=== PATIENT | male | born 1985 | race Caucasian/White ===

== ENCOUNTER 2017-05-29 11:51 | Emergency (ER) | payer OTHER ==
[~2017-05-29] VITALS: Ht 175.3 cm; Wt 60.6 kg
[~2017-05-29 11:51] MED LIST: IBUP-103 PO
[2017-05-29 11:54] VITALS: TEMP 36.6; Ht 175.3 cm; Wt 60.6 kg
[2017-05-29] MEDS ORDERED: HYDROCODONE/ACETAMOPHEN 5/325MG TAB PO STA (12:20)
--- NOTE | 2017-05-29 12:49 | DIAGNOSTIC IMAGING REPORT ---
LEFT KNEE 2 VIEWS HISTORY: left knee pain COMPARISON: None. FINDINGS: There is no fracture or dislocation. Soft tissues are unremarkable. No significant knee effusion. IMPRESSION: No fracture or dislocation within the left knee. Electronically signed by: Domenico Terrell M.D. 05/29/2017 12:47 PM Dictated Date/Time: 05/29/2017 12:46 PM
--- NOTE | 2017-05-29 12:54 | EMERGENCY ROOM VISIT NOTE ---
ED Visit Note First contact with patient: 12:00 CHIEF COMPLAINT: Left knee pain/injury HISTORY OF PRESENT ILLNESS: This 31-year-old male presents the ER with chief complaint of left knee pain. The patient states last evening he was moving a laundry basket and twisted his left knee and felt a "pop" in his left knee. He did not fall to the ground. The patient states that at 1:00 when he got up in the morning he could not stand on his leg due to the pain in his knee. He took 800 mg of ibuprofen this morning before he went to work. While he was at work she states it became more painful and therefore he came to the emergency room. The patient denies any prior injury to his knee. The patient denies any locking or giving out of the knee. REVIEW OF SYSTEMS: 6 system review was performed and was negative unless stated otherwise in history of present illness. PMH: The patient is healthy; testicular cancer SOCIAL HISTORY: Patient admits to tobacco use but denies any alcohol use. PHYSICAL EXAM: Vital Signs: Were reviewed GENERAL: 31-year-old male appears in no acute distress. Reviewed Nurse's notes. MENTAL STATUS: Alert, oriented, and cooperative. LEFT KNEE: No gross bony deformity noted. No erythema or edema noted. The patient is tender to palpation over the medial aspect. There is no joint effusion. Full range of motion with pain elicited with complete flexion .There is no ligamentous instability. The skin is normal and intact. EMERGENCY DEPARTMENT COURSE: The patient was evaluated. The patient was given [place] 5/325 mg one tablet by mouth for pain. X-ray of the left knee was ordered and interpreted by the radiologist and myself. DIAGNOSTICS:LEFT KNEE 2 VIEWS HISTORY: left knee pain COMPARISON: None. FINDINGS: There is no fracture or dislocation. Soft tissues are unremarkable. No significant knee effusion. IMPRESSION: No fracture or dislocation within the left knee. Electronically signed by: Domenico Terrell M.D. 05/29/2017 12:47 PM The patient was informed of the findings. The patient was placed in a knee immobilizer. The patient was discharged home in stable condition. DIAGNOSIS: Left Sprained Knee DISCHARGE INSTRUCTIONS: Knee immobilizer for 3 - 5 days until the pain subsides , ibuprofen, 600 mg every 6 hours if needed for pain. Ice to and elevation to the knee frequently for the next 24 hours. Stay off the leg as much as possible and see your physician or orthopedist in 4 or 5 days if you are not improving. Problem List Medical Problems: (1) Back pain Status: Resolved (2) Foreign body of eyelid, left Status: Resolved (3) Shoulder injury Status: Resolved (4) Sinusitis Status: Resolved (5) Testicular cancer Status: Resolved Surgical Problems: (1) H/O shoulder surgery Status: Resolved (2) S/P radical unilateral orchiectomy Status: Resolved Current/Historical Medications Scheduled PRN Ibuprofen Tab (Advil), 400 MG PO Q4H PRN for Pain Allergies Coded Allergies: Codeine (Unverified Allergy, Severe, VOMITTING, 05/29/17) Penicillins (Verified Allergy, Severe, HIVES AND THROAT EDEMA, 05/29/17) Tramadol (Verified Allergy, Unknown, hives, 05/29/17) Ketorolac Tromethamine (Unverified Adverse Reaction, Unknown, VOMITING, 04/05) Vital Signs Date Time Temp Pulse Resp B/P (MAP) Pulse Ox O2 Delivery O2 Flow Rate FiO2 05/29/17 11:54 36.6 87 20 121/72 97 Room Air Medications Administered Medications (Trade) Dose Ordered Sig/Kervin Route Start Time Stop Time Status Last Admin Dose Admin Acetaminophen/ Hydrocodone Bitart ([place] 5/325 Tab) 1 tab NOW STAT PO 05/29/17 12:20 05/29/17 12:21 DC 05/29/17 12:27 1 TAB Departure Information Referrals No Doctor, Assigned (PCP) Patient Instructions [facility]
[2017-05-29 13:04] VITALS: BP 109/66; PULSE 78; O2SAT 98
== END 2017-05-29 13:08 | disposition home or self-care (01) ==
LOC: C.EDB 11:55 → C.EDD 13:08
DX: S83.92XA Sprain of unspecified site of left knee, initial encounter (principal); X58.XXXA Exposure to other specified factors, initial encounter; F17.200 Nicotine dependence, unspecified, uncomplicated; Z85.47 Personal history of malignant neoplasm of testis